=== PATIENT | male | born 1945 | race African-American/Black ===

== ENCOUNTER 2017-09-16 09:42 | Day surgery (SDC) | payer OTHER ==
[2017-09-16 10:40] VITALS: BMI 25.2
--- NOTE | 2017-09-16 12:25 | HP ---
History & Physical Update - History History: No Change - Physical Physical: No Change - Assessment Assessment: No Change - Plan Plan: No Change
--- NOTE | 2017-09-16 12:27 | OP ---
Operative Note - Note: Operative Date: 09/16/17 Pre-Operative Diagnosis: prostate cancer Operation: prostate cryoablation and cystoscopy Findings: heterogeneous prostate Post-Operative Diagnosis: Same as Pre-op Surgeon: Lalit Castillo Anesthesiologist/EXECUTIVE HOUSEKEEPER: Jade Killian Anesthesia: General Estimated Blood Loss (mls): 0 Drains & Tubes with Location: 18 fr cheng Operative Report Dictated: Yes
[2017-09-16] MEDS ORDERED: PROPOFOL 20 ML ONE ×2 (12:39)
[2017-09-16] MEDS ORDERED: MIDAZOLAM HCL 2 MG/2 ML SINGLE DOSE VIAL ONE (12:39)
[2017-09-16] MEDS ORDERED: KETOROLAC TROMETHAMINE 30 MG/1 ML VIAL ONE (13:53)
[2017-09-16] MEDS ORDERED: ONDANSETRON 4 MG/2 ML VIAL IVPUSH PRN (14:15)
[2017-09-16] MEDS ORDERED: LACTATED RINGERS SOLUTION 1,000 ML IV SCH (14:15)
[2017-09-16] MEDS ORDERED: oxyCODONE HCL 5 MG TABLET PO PRN (14:15)
[2017-09-16 17:45] VITALS: BP 131/66; PULSE 62
[2017-09-16 18:30] VITALS: TEMP 97.6
--- NOTE | 2017-09-17 11:54 | OP ---
DATE OF OPERATION: 09/16/2017 PREOPERATIVE DIAGNOSIS: Prostate cancer. POSTOPERATIVE DIAGNOSIS: Prostate cancer. PROCEDURE: Prostate cryoablation and cystoscopy. SURGEON: Lalit Elizalde MD RETORT ENGINEER: None. ANESTHESIA: General via endotracheal tube. ANESTHESIOLOGIST: Jade Killian MD SPECIMENS: None. CULTURES: None. DRAINS: An 18-[place] Yang catheter. ESTIMATED BLOOD LOSS: None. COMPLICATION: None. DESCRIPTION OF PROCEDURE: Patient was brought into the operating room, placed on the operating table in the supine position. After administration of intravenous antibiotics, general anesthesia was administered, and the patient was placed in the dorsal lithotomy position with sequential compression devices in place. The perineum was shaved first, and the perineum and genitals were prepped and draped in usual sterile manner. An 18-[place] Yang catheter was placed per urethra, placed within the bladder, and the bladder was then filled with 300 mL of sterile normal saline and clamped. Now, the transrectal ultrasound probe was inserted, and transrectal ultrasound of the prostate was done. Planning was now done for the prostate cryoablation. Six probes were used. The 6 probes were tested first, then placed in the appropriate location. A temperature sensor was placed in [place]villiers fascia and external sphincter. Measurements were taken for the length of the prostate, and the probes were set at the appropriate length. Now, the indwelling Yang catheter was removed. Flexible cystoscopy was performed. This demonstrated no probes that traversed the prostatic urethra or entered the bladder. The bladder was thoroughly inspected. There were no foreign bodies, tumors, stones, or inflammation. Both ureteral orifices were in the usual location with clear efflux bilaterally. There was a large TUR defect. Now, a Super Stiff guidewire was passed, and the urethral warmer was passed over the guidewire and left in place. Now, prostate cryoablation was done with 2 freeze/thaw cycles after confirming thallium the probes were still in the proper position. Once 2 freeze/thaw cycles were complete, the urethral warmer was left in place for an additional 5 minutes, and the CryoProbes were removed as well as the temperature sensors. A sterile compressive dressing was applied after digital manual pressure for hemostasis. An 18-Tog[place] Yang catheter was replaced, 10 mL placed in the balloon, placed on gravity drainage; return clear. He tolerated the procedure well, transferred to Recovery in stable condition. He will be followed in the office next week. LALIT ELIZALDE M.D. [id number]
== END 2017-09-16 17:46 | disposition home or self-care (01) ==
LOC: JASU-SURG 09:42
PROVIDERS: ATTEND Urology
PROC: 0V507ZZ Destruction of Prostate, Via Natural or Artificial Opening (ICD-10-PCS; principal; 2017-09-16 12:00)
DX: C61 Malignant neoplasm of prostate (principal); I10 Essential (primary) hypertension; E11.9 Type 2 diabetes mellitus without complications
CPT/HCPCS: 55873; C2618; 82962

== ENCOUNTER 2022-10-29 11:23 | Inpatient (IN) | payer OTHER ==
[2022-10-29] MEDS ORDERED: LACTATED RINGERS SOLUTION 1000 ML INFUS.BAG IV ONE (12:22)
[2022-10-29 12:55] LABS: VENOUS O2 SATURATION 19.4 % (70-80); VENOUS PCO2 57.2 mmHg (38-52); VENOUS PH 7.367 (7.310-7.410)
[2022-10-29 12:58] LABS: HEMATOCRIT 42.4 % (35.4-49); HEMOGLOBIN 14.6 GM/dL (11.7-16.9); MCH 29.2 pg (25.7-33.7); MCHC 34.4 g/dl (32.0-35.9); MEAN CELL VOLUME 84.7 fl (80-96); MEAN PLT VOLUME 9.3 fl (7.5-11.1); PLATELET COUNT 201 10^3/uL (134-434); RBC 5.01 M/mm3 (4.00-5.60); RDW 13.3 % (11.9-15.9); WHITE BLOOD COUNT 27.6 K/mm3 (4.0-10.0)
[2022-10-29 13:18] LABS: ALBUMIN 3.8 g/dl (3.4-5.0); BLOOD UREA NITROGEN 15.8 mg/dL (7-18); CALCIUM 9.4 mg/dL (8.5-10.1)
[2022-10-29 13:24] LABS: BILIRUBIN,TOTAL 0.8 mg/dL (0.2-1)
[2022-10-29 13:43] LABS: ANISOCYTOSIS 2+; MACROCYTOSIS 0
[2022-10-29 17:59] LABS: URINE APPEARANCE CLEAR; URINE BILIRUBIN NEGATIVE (NEGATIVE); URINE COLOR YELLOW; URINE GLUCOSE (UA) 1+ (NEGATIVE); URINE KETONE NEGATIVE (NEGATIVE); URINE LEUK ESTERASE NEGATIVE (NEGATIVE); URINE NITRITE NEGATIVE (NEGATIVE); URINE PROTEIN TRACE (NEGATIVE); URINE UROBILINOGEN 0.2 mg/dL (0.2-1.0)
[2022-10-29 19:59] VITALS: RESP 18
[2022-10-29 22:11] VITALS: BMI 23.8
[2022-10-29] MEDS: SODIUM CHLORIDE 1,000 ML IV SCH (23:27)
[2022-10-29] MEDS ORDERED: INSULIN (NOVOLOG) ASPART 100 UNITS/ML 10ML VIAL ONE (23:33)
[2022-10-29] MEDS: INSULIN SLIDING SCALE (NOVOLOG) 1 VIAL SQ SCH (23:46)
[2022-10-29 23:57] LABS: HEMATOCRIT 38.3 % (35.4-49); HEMOGLOBIN 12.8 GM/dL (11.7-16.9); MCH 28.8 pg (25.7-33.7); MCHC 33.5 g/dl (32.0-35.9); MEAN CELL VOLUME 86.1 fl (80-96); MEAN PLT VOLUME 9.3 fl (7.5-11.1); PLATELET COUNT 172 10^3/uL (134-434); RBC 4.45 M/mm3 (4.00-5.60); RDW 13.4 % (11.9-15.9); WHITE BLOOD COUNT 26.5 K/mm3 (4.0-10.0)
[2022-10-30 04:04] LABS: ANISOCYTOSIS 0; MACROCYTOSIS 0
[2022-10-30] MEDS: INSULIN SLIDING SCALE (NOVOLOG) 1 VIAL SQ SCH ×4 (06:09→23:05)
[2022-10-30] MEDS ORDERED: INSULIN SLIDING SCALE (NOVOLOG) 1 VIAL SQ SCH (07:00)
[2022-10-30] MEDS: METOPROLOL TARTRATE 50 MG TABLET (FP) PO SCH (10:08)
[2022-10-30] MEDS: ENOXAPARIN NA (PORCINE) 40 MG/0.4 ML DISP.SYRIN SQ SCH (10:08)
[2022-10-30 10:18] LABS: HEMATOCRIT 39.2 % (35.4-49); HEMOGLOBIN 13.3 GM/dL (11.7-16.9); MCHC 33.9 g/dl (32.0-35.9); MEAN CELL VOLUME 85.4 fl (80-96); MEAN PLT VOLUME 9.5 fl (7.5-11.1); PLATELET COUNT 181 10^3/uL (134-434); RBC 4.59 M/mm3 (4.00-5.60); RDW 13.8 % (11.9-15.9); WHITE BLOOD COUNT 25.2 K/mm3 (4.0-10.0)
[2022-10-30 10:22] LABS: INR 0.97 (0.83-1.09); PROTHROMBIN TIME (PATIENT) 11.2 SEC (9.7-13.0)
[2022-10-30 10:54] LABS: ALBUMIN 3.1 g/dl (3.4-5.0); CALCIUM 8.7 mg/dL (8.5-10.1); MAGNESIUM 1.8 mg/dL (1.8-2.4)
[2022-10-30 10:55] LABS: BLOOD UREA NITROGEN 18.4 mg/dL (7-18)
[2022-10-30 10:58] LABS: BILIRUBIN,TOTAL 0.8 mg/dL (0.2-1); PHOSPHOROUS 3.3 mg/dL (2.5-4.9); TOT PROT 5.9 g/dl (6.4-8.2)
[2022-10-30 11:22] LABS: ANISOCYTOSIS 0; HELMET CELLS 0; HOWELL-JOLLY BODIES 0; MACROCYTOSIS 0; OVALOCYTE 0; ROULEAU 0; SICKELED CELLS 0; TARGET CELLS 0; TEAR DROP CELLS 0; TOXIC GRANULATION 0
[2022-10-30] MEDS ORDERED: INSULIN (NOVOLOG) ASPART 100 UNITS/ML 10ML VIAL ONE (12:08)
[2022-10-30] MEDS: SODIUM CHLORIDE 1,000 ML IV SCH (12:18)
[2022-10-30] MEDS: ACETAMINOPHEN 325 MG TABLET (FP) PO PRN (17:17)
[2022-10-30] MEDS ORDERED: INSULIN (LEVEMIR) 100 UNITS/ML UNITS SQ SCH (22:00)
[2022-10-31] MEDS: INSULIN SLIDING SCALE (NOVOLOG) 1 VIAL SQ SCH (07:01)
[2022-10-31 08:07] VITALS: BP 136/70; PULSE 54; TEMP 97.6
[2022-10-31] MEDS ORDERED: INSULIN (NOVOLOG) ASPART 100 UNITS/ML 10ML VIAL ONE (08:09)
[2022-10-31] MEDS ORDERED: INSULIN (LEVEMIR) 100 UNITS/ML UNITS SQ ONE (08:09)
[2022-10-31] MEDS: ACETAMINOPHEN 325 MG TABLET (FP) PO PRN (08:46)
[2022-10-31] MEDS: ENOXAPARIN NA (PORCINE) 40 MG/0.4 ML DISP.SYRIN SQ SCH (09:05)
[2022-10-31] MEDS: METOPROLOL TARTRATE 50 MG TABLET (FP) PO SCH (09:05)
== END 2022-10-31 11:04 | disposition home or self-care (01) | DRG 638 ==
LOC: JER 11:23 → JERBED 17:52 → J8W 21:34
PROVIDERS: ADMIT Internal Medicine; ATTEND Nurse Practitioner Acute Care
DX: E11.65 Type 2 diabetes mellitus with hyperglycemia (principal); C85.90 Non-Hodgkin lymphoma, unspecified, unspecified site; C91.10 Chronic lymphocytic leukemia of B-cell type not having achieved remission; C95.90 Leukemia, unspecified not having achieved remission; I10 Essential (primary) hypertension; C61 Malignant neoplasm of prostate; K25.9 Gastric ulcer, unspecified as acute or chronic, without hemorrhage or perforation
CPT/HCPCS: 0241U-QW; 36415; 71046-TC-FY; 80053; 81003; 82803; 82962; 83036; 83735; 84100; 84484; 85025; 85610; 87086; 93005; 93010; 99285-25

== ENCOUNTER → 2022-10-29 | Day surgery (SDC) | payer OTHER ==
[2022-10-27 13:20] VITALS: BMI 25.6
[~2022-10-29] MED LIST: BACITRACIN ZINC 15 GM TUBE TOPICAL OINTMENT ONE; INSULIN (NOVOLOG) ASPART 100 UNITS/ML 10ML VIAL SQ ONE
[2022-10-29 10:51] VITALS: BP 144/83; PULSE 71; RESP 20; TEMP 97.3
== END | disposition home or self-care (01) ==
LOC: JASU-SURG 05:20
PROVIDERS: ATTEND Urology
DX: Z53.8 Procedure and treatment not carried out for other reasons (principal)
CPT/HCPCS: 82962

== ENCOUNTER 2024-05-14 15:56 | Inpatient (IN) | payer OTHER ==
[2024-05-14] MEDS ORDERED: ACETAMINOPHEN INJECTION 100 ML ONE (17:10)
[2024-05-14] MEDS: ACETAMINOPHEN 1000 MG/100 ML BAG IVPB ONE (17:15)
[2024-05-14 17:38] LABS: HEMATOCRIT 41.1 % (35.4-49); HEMOGLOBIN 13.6 GM/dL (11.7-16.9); MCH 28.5 pg (25.7-33.7); MCHC 33.1 g/dl (32.0-35.9); MEAN CELL VOLUME 86.1 fl (80-96); MEAN PLT VOLUME 8.1 fl (7.5-11.1); PLATELET COUNT 183 10^3/uL (134-434); RBC 4.78 M/mm3 (4.00-5.60); RDW 14.1 % (11.9-15.9)
[2024-05-14 17:46] LABS: INR 0.96 (0.83-1.09); PROTHROMBIN TIME (PATIENT) 10.9 SEC (9.7-13.0)
[2024-05-14 17:49] LABS: ACTIVATED PTT 30.1 SECONDS (25.2-36.5)
[2024-05-14 17:56] LABS: POTASSIUM 3.5 mmol/L (3.5-5.1)
[2024-05-14 17:58] LABS: CALCIUM 8.9 mg/dL (8.5-10.1)
[2024-05-14 17:59] LABS: ALBUMIN 3.7 g/dl (3.4-5.0); BLOOD UREA NITROGEN 17.5 mg/dL (7-18)
[2024-05-14 18:02] LABS: CREATININE 0.9 mg/dL (0.55-1.3)
[2024-05-14 18:03] LABS: BILIRUBIN,TOTAL 0.9 mg/dL (0.2-1); TOT PROT 6.7 g/dl (6.4-8.2)
[2024-05-14 18:15] LABS: ANISOCYTOSIS 2+; MACROCYTOSIS 0
[2024-05-14 18:57] LABS: HIV INTERPRETATION NEGATIVE (NEGATIVE)
[2024-05-14] MEDS ORDERED: oxyCODONE HCL 5 MG TABLET ONE (20:32)
[2024-05-14] MEDS: oxyCODONE HCL 5 MG TABLET PO ONE (20:39)
[2024-05-14] MEDS ORDERED: ACETAMINOPHEN 1000 MG/100 ML BAG IVPB PRN (23:23)
[2024-05-14] MEDS ORDERED: oxyCODONE HCL 5 MG TABLET PO PRN (23:23)
[2024-05-15 03:14] VITALS: BMI 26.5
[2024-05-15] MEDS: INSULIN ASPART SLIDING SCALE (NOVOLOG) 1 VIAL SQ SCH ×2 (07:56→22:46)
[2024-05-15] MEDS: LOSARTAN POTASSIUM 50 MG TABLET PO SCH (10:06)
[2024-05-15] MEDS: amLODIPine BESYLATE 5 MG TABLET (FP) PO SCH (10:06)
[2024-05-15] MEDS ORDERED: PROPOFOL 60 ML ONE ×2 (10:12→13:51)
[2024-05-15] MEDS ORDERED: ceFAZolin SODIUM 1 GM VIAL ONE ×2 (10:13→17:23)
[2024-05-15] MEDS ORDERED: GLYCOPYRROLATE 0.2 MG/1 ML VIAL ONE (10:13)
[2024-05-15] MEDS ORDERED: DEXAMETHASONE SOD PHOSPHATE 4 MG/1 ML VIAL ONE (10:13)
[2024-05-15] MEDS ORDERED: ONDANSETRON 4 MG/2 ML VIAL ONE (10:13)
[2024-05-15] MEDS ORDERED: LIDOCAINE HCL/PF 2% SDV 5ML VIAL ONE (10:13)
[2024-05-15] MEDS ORDERED: SODIUM CHLORIDE 0.9% P/F 10 ML VIAL IJ ONE (10:17)
[2024-05-15] MEDS ORDERED: MIDAZOLAM HCL 2 MG/2 ML SINGLE DOSE VIAL ONE (10:24)
[2024-05-15] MEDS ORDERED: PROPOFOL 20 ML ONE ×4 (10:25→17:36)
[2024-05-15] MEDS ORDERED: HYDROmorphone HCl 2 MG/ML VIAL ONE (10:28)
[2024-05-15 12:07] LABS: HEMATOCRIT 42.8 % (35.4-49); HEMOGLOBIN 14.4 GM/dL (11.7-16.9); MCHC 33.7 g/dl (32.0-35.9); MEAN PLT VOLUME 9.3 fl (7.5-11.1); PLATELET COUNT 186 10^3/uL (134-434); RBC 4.97 M/mm3 (4.00-5.60); RDW 14.1 % (11.9-15.9); WHITE BLOOD COUNT 10.8 K/mm3 (4.0-10.0)
[2024-05-15] MEDS ORDERED: VANCOMYCIN 1,000 MG VIAL (RESTRICTED TO ID ONLY) ONE (12:15)
[2024-05-15] MEDS ORDERED: BUPIVACAINE LIPOSOME/PF (EXPAREL) 266 MG/20 ML VIAL ONE (12:15)
[2024-05-15] MEDS ORDERED: TRANEXAMIC ACID 1000 MG/10 ML VIAL ONE (12:15)
[2024-05-15] MEDS ORDERED: BUPIVACAINE HCL/PF 0.5% (5MG/ML) 10 ML VIAL ONE (12:18)
[2024-05-15 12:28] LABS: POTASSIUM 3.3 mmol/L (3.5-5.1)
[2024-05-15 12:30] LABS: ALBUMIN 3.7 g/dl (3.4-5.0)
[2024-05-15 12:31] LABS: BLOOD UREA NITROGEN 17.4 mg/dL (7-18); MAGNESIUM 2.2 mg/dL (1.8-2.4)
[2024-05-15 12:33] LABS: ANISOCYTOSIS 0; MACROCYTOSIS 0
[2024-05-15 12:34] LABS: CREATININE 0.9 mg/dL (0.55-1.3); PHOSPHOROUS 3.9 mg/dL (2.5-4.9)
[2024-05-15 12:35] LABS: BILIRUBIN,TOTAL 0.9 mg/dL (0.2-1); TOT PROT 6.6 g/dl (6.4-8.2)
[2024-05-15] MEDS ORDERED: GENTAMICIN SO4 80 MG/2 ML VIAL ONE (12:52)
[2024-05-15] MEDS ORDERED: KETAMINE HCL 200 MG/20 ML VIAL ONE (13:16)
[2024-05-15] MEDS: ceFAZolin SODIUM 1 GM VIAL IVPB ONE (13:20)
[2024-05-15] MEDS ORDERED: MAGNESIUM SULF 50% (8.12 MEQ/2 ML-1 GM VIAL) ONE (13:27)
[2024-05-15] MEDS: VANCOMYCIN 1 GM in NS (PRE-DOCKED) 1,000 MG/250 ML (RESTRICTED TO ID ONLY) IVPB ONE (14:12)
[2024-05-15] MEDS: BUPIVACAINE HCL/PF 0.5% (5 MG/ML) 30 ML VIAL IJ ONE ×2 (14:12→17:30)
[2024-05-15] MEDS ORDERED: ROCURONIUM BROMIDE 50 MG/5 ML SYRINGE ONE ×2 (14:27→14:32)
[2024-05-15] MEDS ORDERED: PROPOFOL 80 ML ONE (14:53)
[2024-05-15] MEDS: BUPIVACAINE LIPOSOME/PF (EXPAREL) 266 MG/20 ML VIAL NR ONE ×2 (15:18→17:30)
[2024-05-15] MEDS ORDERED: THROMBIN (BOVINE) 20,000 UNIT VIAL TP ONE (15:36)
[2024-05-15] MEDS ORDERED: PROPOFOL 40 ML ONE (16:09)
[2024-05-15] MEDS ORDERED: SUGAMMADEX SODIUM 200 MG/2 ML VIAL ONE (16:48)
[2024-05-15] MEDS ORDERED: ONDANSETRON 4 MG/2 ML VIAL IVPUSH PRN ×4 (18:16→19:52)
[2024-05-15] MEDS ORDERED: HYDROmorphone *PCA* 10MG/50ML DISP.SYRIN ONE (18:42)
[2024-05-15] MEDS: LACTATED RINGERS SOLUTION 1,000 ML IV SCH ×2 (19:00→21:40)
[2024-05-15] MEDS: HYDROmorphone *PCA* 10MG/50ML DISP.SYRIN PCA SCH (19:01)
[2024-05-15] MEDS ORDERED: ACETAMINOPHEN 1000 MG/100 ML BAG IVPB PRN (19:52)
[2024-05-15] MEDS ORDERED: CEFAZOLIN SODIUM 2 GM in DEXTROSE 5%-WATER 100 ML IVPB SCH (22:00)
[2024-05-15] MEDS: MUPIROCIN 2% TOPICAL OINTMENT FOR DECOLONIZATION NS SCH (22:46)
[2024-05-15] MEDS: CHLORHEXIDINE GLUCONATE 4% CLEANSER FOR DECOLONIZATION TP SCH (22:47)
[2024-05-16] MEDS: CEFAZOLIN SODIUM 2 GM in DEXTROSE 5%-WATER 100 ML IVPB SCH (01:17)
[2024-05-16] MEDS: LOSARTAN POTASSIUM 50 MG TABLET PO SCH (08:59)
[2024-05-16] MEDS: amLODIPine BESYLATE 5 MG TABLET (FP) PO SCH (08:59)
[2024-05-16] MEDS: SENNOSIDES 8.8 MG/5 ML SYRUP PO SCH (18:34)
[2024-05-16] MEDS: DOCUSATE SODIUM 100 MG CAPSULE (FP) PO PRN (18:34)
[2024-05-16] MEDS ORDERED: BISACODYL 5 MG TABLET.DR (FP) PO PRN (19:00)
[2024-05-16] MEDS: HYDROmorphone *PCA* 10MG/50ML DISP.SYRIN PCA SCH (19:16)
[2024-05-17 07:30] LABS: BASO % 0.2 % (0-2.0); EOS % 0.2 % (0-4.5); HEMATOCRIT 31.5 % (35.4-49); HEMOGLOBIN 10.8 GM/dL (11.7-16.9); LYMPH % 54.7 % (8-40); MCH 29.7 pg (25.7-33.7); MCHC 34.3 g/dl (32.0-35.9); MEAN CELL VOLUME 86.4 fl (80-96); MEAN PLT VOLUME 9.2 fl (7.5-11.1); MONO % 10.6 % (3.8-10.2); NEUT % 34.3 % (42.8-82.8); PLATELET COUNT 162 10^3/uL (134-434); RBC 3.64 M/mm3 (4.00-5.60); RDW 13.6 % (11.9-15.9); WHITE BLOOD COUNT 16.1 K/mm3 (4.0-10.0)
[2024-05-17 07:48] LABS: POTASSIUM 3.3 mmol/L (3.5-5.1)
[2024-05-17 07:53] LABS: BLOOD UREA NITROGEN 22.2 mg/dL (7-18); CALCIUM 7.9 mg/dL (8.5-10.1); MAGNESIUM 2.1 mg/dL (1.8-2.4)
[2024-05-17 07:56] LABS: CREATININE 1.1 mg/dL (0.55-1.3); PHOSPHOROUS 3.2 mg/dL (2.5-4.9)
[2024-05-17 07:58] LABS: TOT PROT 5.1 g/dl (6.4-8.2)
[2024-05-17 08:10] LABS: ALBUMIN 2.8 g/dl (3.4-5.0)
[2024-05-17] MEDS: POLYETHYLENE GLYCOL (HEALTHYLAX) 3350 17 GM PACKET PO SCH ×2 (12:55→22:26)
[2024-05-17] MEDS: oxyCODONE HCL 5 MG TABLET PO PRN (20:57)
[2024-05-17] MEDS ORDERED: BENZOCAINE/MENTH/CETYLPYRD CL 1 EACH LOZENGE MM PRN (22:11)
[2024-05-17] MEDS: BACLOFEN 10 MG TABLET (FP) PO SCH (22:29)
[2024-05-17] MEDS: GABAPENTIN 400 MG CAPSULE PO SCH (22:29)
[2024-05-17] MEDS: ACETAMINOPHEN 325 MG TABLET (FP) PO PRN (23:21)
[2024-05-18 08:03] LABS: HEMATOCRIT 39.1 % (35.4-49); HEMOGLOBIN 12.7 GM/dL (11.7-16.9); MCH 28.6 pg (25.7-33.7); MCHC 32.6 g/dl (32.0-35.9); MEAN CELL VOLUME 87.7 fl (80-96); MEAN PLT VOLUME 9.9 fl (7.5-11.1); PLATELET COUNT 193 10^3/uL (134-434); RBC 4.46 M/mm3 (4.00-5.60); RDW 13.6 % (11.9-15.9)
[2024-05-18 08:10] LABS: POTASSIUM 3.6 mmol/L (3.5-5.1)
[2024-05-18 08:17] LABS: BLOOD UREA NITROGEN 14.3 mg/dL (7-18)
[2024-05-18 08:20] LABS: CREATININE 0.9 mg/dL (0.55-1.3)
[2024-05-18 08:21] LABS: BILIRUBIN,TOTAL 1.4 mg/dL (0.2-1)
[2024-05-18 08:22] LABS: TOT PROT 6.7 g/dl (6.4-8.2)
[2024-05-18 08:35] LABS: ALBUMIN 3.4 g/dl (3.4-5.0); CALCIUM 9.1 mg/dL (8.5-10.1)
[2024-05-18 08:45] LABS: ANISOCYTOSIS 0; MACROCYTOSIS 0
[2024-05-18] MEDS: oxyCODONE HCL 5 MG TABLET PO PRN (09:22)
[2024-05-19 07:47] LABS: BASO % 0.2 % (0-2.0); EOS % 0.5 % (0-4.5); HEMATOCRIT 35.8 % (35.4-49); HEMOGLOBIN 11.7 GM/dL (11.7-16.9); MCH 28.7 pg (25.7-33.7); MCHC 32.8 g/dl (32.0-35.9); MEAN CELL VOLUME 87.4 fl (80-96); MEAN PLT VOLUME 9.7 fl (7.5-11.1); MONO % 9.6 % (3.8-10.2); NEUT % 38.7 % (42.8-82.8); PLATELET COUNT 207 10^3/uL (134-434); RDW 13.4 % (11.9-15.9); WHITE BLOOD COUNT 10.2 K/mm3 (4.0-10.0)
[2024-05-19 07:59] LABS: POTASSIUM 3.4 mmol/L (3.5-5.1)
[2024-05-19 08:05] LABS: ALBUMIN 2.9 g/dl (3.4-5.0); BLOOD UREA NITROGEN 13.2 mg/dL (7-18); CALCIUM 8.8 mg/dL (8.5-10.1)
[2024-05-19 08:08] LABS: CREATININE 0.7 mg/dL (0.55-1.3)
[2024-05-19 08:10] LABS: BILIRUBIN,TOTAL 0.8 mg/dL (0.2-1); TOT PROT 5.9 g/dl (6.4-8.2)
[2024-05-19] MEDS ORDERED: ONDANSETRON 4 MG/2 ML VIAL IVPUSH PRN (08:15)
[2024-05-19] MEDS: amLODIPine BESYLATE 5 MG TABLET (FP) PO SCH (09:20)
[2024-05-19] MEDS: CEFAZOLIN SODIUM 2 GM in DEXTROSE 5%-WATER 100 ML IVPB SCH (09:21)
[2024-05-19] MEDS: ACETAMINOPHEN 325 MG TABLET (FP) PO PRN (09:21)
[2024-05-19] MEDS: LOSARTAN POTASSIUM 50 MG TABLET PO SCH (09:21)
[2024-05-19] MEDS: POLYETHYLENE GLYCOL (HEALTHYLAX) 3350 17 GM PACKET PO SCH (09:21)
[2024-05-19] MEDS: DOCUSATE SODIUM 100 MG CAPSULE (FP) PO PRN (09:30)
[2024-05-19] MEDS: CYCLOBENZAPRINE HCL 10 MG TABLET (FP) PO PRN (09:30)
[2024-05-19] MEDS: MUPIROCIN 2% TOPICAL OINTMENT FOR DECOLONIZATION NS SCH (09:35)
[2024-05-19] MEDS: INSULIN ASPART SLIDING SCALE (NOVOLOG) 1 VIAL SQ SCH (12:28)
[2024-05-19] MEDS: POTASSIUM CHLORIDE ORAL LIQUID 20 MEQ/15 ML PO ONE (16:57)
[2024-05-19] MEDS: DEXAMETHASONE SOD PHOSPHATE 4 MG/1 ML VIAL IVPUSH SCH (16:59)
[2024-05-19] MEDS ORDERED: INSULIN ASPART SLIDING SCALE (NOVOLOG) 1 VIAL SQ ONE (18:28)
[2024-05-19] MEDS: oxyCODONE HCL 5 MG TABLET PO PRN (21:03)
[2024-05-19] MEDS: CHLORHEXIDINE GLUCONATE 4% CLEANSER FOR DECOLONIZATION TP SCH (21:04)
[2024-05-19] MEDS: SENNOSIDES 8.8 MG/5 ML SYRUP PO SCH (21:04)
[2024-05-20 07:23] LABS: BASO % 0.3 % (0-2.0); HEMATOCRIT 40.7 % (35.4-49); HEMOGLOBIN 13.3 GM/dL (11.7-16.9); MCH 28.7 pg (25.7-33.7); MCHC 32.8 g/dl (32.0-35.9); MEAN CELL VOLUME 87.5 fl (80-96); MEAN PLT VOLUME 9.6 fl (7.5-11.1); MONO % 3.4 % (3.8-10.2); NEUT % 45.3 % (42.8-82.8); PLATELET COUNT 282 10^3/uL (134-434); RBC 4.65 M/mm3 (4.00-5.60); RDW 13.1 % (11.9-15.9); WHITE BLOOD COUNT 9.9 K/mm3 (4.0-10.0)
[2024-05-20 07:32] LABS: POTASSIUM 4.3 mmol/L (3.5-5.1)
[2024-05-20 07:38] LABS: CALCIUM 9.5 mg/dL (8.5-10.1)
[2024-05-20 07:39] LABS: BLOOD UREA NITROGEN 17.8 mg/dL (7-18)
[2024-05-20 07:42] LABS: CREATININE 0.9 mg/dL (0.55-1.3); TOT PROT 7.2 g/dl (6.4-8.2)
[2024-05-20 07:51] LABS: ALBUMIN 3.5 g/dl (3.4-5.0)
[2024-05-20 07:56] LABS: BILIRUBIN,TOTAL 0.6 mg/dL (0.2-1)
[2024-05-20] MEDS: ACETAMINOPHEN 1000 MG/100 ML BAG IVPB SCH (19:15)
[2024-05-20] MEDS: BISACODYL 5 MG TABLET.DR (FP) PO PRN (22:13)
[2024-05-21] MEDS: EMPAGLIFLOZIN (JARDIANCE) 25 MG TABLET PO SCH (13:43)
[2024-05-21] MEDS: INSULIN (LEVEMIR) 100 UNITS/ML UNITS SQ SCH (21:51)
[2024-05-22] MEDS: oxyCODONE HCL 5 MG TABLET PO PRN (12:24)
[2024-05-22] MEDS: DEXAMETHASONE SOD PHOSPHATE 4 MG/1 ML VIAL IVPUSH SCH (21:01)
[2024-05-22] MEDS: HYDROmorphone HCl 2 MG/ML VIAL IVPUSH ONE (23:31)
[2024-05-23] MEDS ORDERED: INSULIN (LEVEMIR) 100 UNITS/ML UNITS SQ ONE (06:29)
[2024-05-23] MEDS: EMPAGLIFLOZIN (JARDIANCE) 25 MG TABLET PO SCH (07:33)
[2024-05-23 16:24] VITALS: PULSE 63; RESP 17; TEMP 97.8
[2024-05-23] MEDS ORDERED: CEFAZOLIN SODIUM 2 GM VIAL ONE (17:13)
[2024-05-23 22:21] VITALS: BP 126/67
== END 2024-05-23 23:30 | DRG 448 ==
LOC: JER 15:56 → JERFT 15:56 → JERBED 16:25 → J6W 05-15 02:19 → JICU 05-15 21:32 → J2W 05-18 16:13
PROVIDERS: ADMIT Internal Medicine; ATTEND Internal Medicine
PROC: 0SG00AJ Fusion of Lumbar Vertebral Joint with Interbody Fusion Device, Posterior Approach, Anterior Column, Open Approach (ICD-10-PCS; 2024-05-15)
PROC: 0SP004Z Removal of Internal Fixation Device from Lumbar Vertebral Joint, Open Approach (ICD-10-PCS; 2024-05-15)
PROC: 0SB20ZZ Excision of Lumbar Vertebral Disc, Open Approach (ICD-10-PCS; 2024-05-15)
PROC: 01NB0ZZ Release Lumbar Nerve, Open Approach (ICD-10-PCS; 2024-05-15)
PROC: 00QT0ZZ Repair Spinal Meninges, Open Approach (ICD-10-PCS; 2024-05-15)
PROC: 0SP304Z Removal of Internal Fixation Device from Lumbosacral Joint, Open Approach (ICD-10-PCS; 2024-05-15)
PROC: 4A1104G Monitoring of Peripheral Nervous Electrical Activity, Intraoperative, Open Approach (ICD-10-PCS; 2024-05-15)
PROC: 0SG007J Fusion of Lumbar Vertebral Joint with Autologous Tissue Substitute, Posterior Approach, Anterior Column, Open Approach (ICD-10-PCS; principal; 2024-05-15 12:00)
DX: M48.062 Spinal stenosis, lumbar region with neurogenic claudication (principal); G97.41 Accidental puncture or laceration of dura during a procedure; C91.10 Chronic lymphocytic leukemia of B-cell type not having achieved remission; M54.16 Radiculopathy, lumbar region; Y83.8 Other surgical procedures as the cause of abnormal reaction of the patient, or of later complication, without mention of misadventure at the time of the procedure; E11.9 Type 2 diabetes mellitus without complications; I10 Essential (primary) hypertension
CPT/HCPCS: 36415; 70450-TC; 72131-TC; 72148-TC; 76000-TC-FY; 80053; 82962; 83735; 84100; 84443; 85025; 85610; 85730; 86803; 86850; 86900; 86901; 87389; 93005; 93010; 93306-TC; 94760; 97116-GP; 97162-GP; 99285-25; C1713; J0131; J0475